=== PATIENT | female | born 1935 | race Hispanic/Latino ===

== ENCOUNTER 2021-08-24 16:56 | Inpatient (IN) | payer MEDICARE ==
--- NOTE | 2021-08-25 09:48 | History and Physical Report ---
GP History & Physical - History of Present Illness Date of admission: 08/25/21 Date of Examination: 08/25/21 Reason for Admission: Danger to self Chief Complaint: Worsening dementia/ hallucinations History of Present Illness: The patient is a 85 year old female with history of dementia who was admitted on 1012 from [facility] for worsening dementia and hallucinations. The patient was seen eating breakfast but confused and unable to participate in assessment. Per Note" The patient is having hallucinations, perseverating on a young male in her yard who talks ugly to her. 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 Patient enrolled in individual and group therapeutic sessions and encouraged to attend. Patient provided with a safe and structured environment. Patient's physical health needs will be addressed by the Hospitalist. Hospitalist Consulted Labs including CBC, CMP, Lipid profile and Hemoglobin A1C levels ordered for baseline reference Social Assessment will be completed and the Reconditioning Associate will work with patient and family to ensure a suitable and safe disposition Medication adjustment will be made as clinically indicated Continue home medications Usual Wellness Spiritism/Preservation: - Start Trazodone 50 mg po QHS & 50 mg po QHS PRN between 10 PM & 2 AM for insomnia - Start Melatonin 5 mg po QHS to promote circadian rhythm The patient agreed on the treatment plan, understood the risk, benefit, alternative treatment, potential consequence of no treatment, and gave informed consent. Estimated days: 7 Post hospital care: primary care provider, psychiatric provider Case staffed with Dr. Dykes Legal Status: Voluntary Reaction to Hospitalization: Accepting Medications and Allergies Allergies Allergy/AdvReac Type Severity Reaction Status Date / Time Sulfa (Sulfonamide Allergy Unknown Unverified 08/24/21 18:24 Antibiotics) Home Medications Medication Instructions Recorded Confirmed Last Taken Type AtorvaSTATin [Lipitor] 10 mg PO QHS 08/25/21 08/25/21 Unknown History Escitalopram Oxalate [Lexapro] 5 mg PO QDAY 08/25/21 08/25/21 Unknown History LORazepam [Lorazepam] 2 mg PO HS 08/25/21 08/25/21 Unknown History Melatonin [Melatonin 5MG TAB] 5 mg PO HS 08/25/21 08/25/21 Unknown History Rivaroxaban [Xarelto] 20 mg PO QDAY 08/25/21 08/25/21 Unknown History lisinopriL [Lisinopril] 10 mg PO BID 08/25/21 08/25/21 Unknown History Physician Certification - Certification Statement Physician Certification Statement: This is an acknowledgement statement that Sherrie Luna is a 86 year old F who requires inpatient psychiatric admission for treatment which could reasonably be expected to improve the patient's condition for Estimated period of time patient will need to remain in the hospital: [ ] Plan for post-hospital care: [ ]
[2021-08-25] MEDS ORDERED: NON-FORMULARY EACH (Rivaroxaban 20 MG Tablet) PO SCH (10:00)
[2021-08-25] MEDS ORDERED: NON-FORMULARY EACH (Escitalopram Oxalate [Lexapro] 5 MG Tablet) PO SCH (10:00)
[2021-08-25] MEDS ORDERED: [UNRECOGNIZED DRUG - OTHER] PO SCH (11:00)
[2021-08-25] MEDS: RIVAROXABAN 20 MG TAB PO SCH (11:09)
[2021-08-25] MEDS: ESCITALOPRAM 10 MG TAB PO SCH (11:09)
[2021-08-25] MEDS: LISINOPRIL 10 MG TAB PO SCH ×2 (11:09→21:17)
[2021-08-25] MEDS: MELATONIN 5 MG TAB PO SCH (21:15)
--- NOTE | 2021-08-26 08:16 | Progress Note ---
Subjective Date of service: 08/26/21 Subjective Comment: 08/26/21: The patient was seen in the activity room, she is calm and oriented to self. She continues to be confused. Per nurse the patient had a quiet night. Collateral from patient's sister Sin Ansari: Ms. Vogt states that the patient started having visual hallucinations about 2 months now, that she was complain of people crawling and walking around her yard and on top of her house and that she could not get them to leave. She was unable to state when or if she was diagnosed with Dementia. 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 Patient enrolled in individual and group therapeutic sessions and encouraged to attend. Patient provided with a safe and structured environment. Patient's physical health needs will be addressed by the Hospitalist. Hospitalist Consulted Labs including CBC, CMP, Lipid profile and Hemoglobin A1C levels ordered for baseline reference Social Assessment will be completed and the Cinema Or Theatre Manager will work with patient and family to ensure a suitable and safe disposition Medication adjustment will be made as clinically indicated Continue home medications Start Risperidone 0.25mg po BID Usual Wellness Yazidism/Preservation: - Start Trazodone 50 mg po QHS & 50 mg po QHS PRN between 10 PM & 2 AM for insomnia - Start Melatonin 5 mg po QHS to promote circadian rhythm The patient agreed on the treatment plan, understood the risk, benefit, alternative treatment, potential consequence of no treatment, and gave informed consent. Estimated days: 6 Post hospital care: primary care provider, psychiatric provider Case staffed with Dr. Dykes Legal Status: Voluntary Reaction to Hospitalization: Accepting Medications and Allergies Medications and Allergies Allergies Allergy/AdvReac Type Severity Reaction Status Date / Time Sulfa (Sulfonamide Allergy Unknown Unverified 08/24/21 18:24 Antibiotics) Home Medications Medication Instructions Recorded Confirmed Last Taken Type AtorvaSTATin [Lipitor] 10 mg PO QHS 08/25/21 08/25/21 Unknown History Escitalopram Oxalate [Lexapro] 5 mg PO QDAY 08/25/21 08/25/21 Unknown History LORazepam [Lorazepam] 2 mg PO HS 08/25/21 08/25/21 Unknown History Melatonin [Melatonin 5MG TAB] 5 mg PO HS 08/25/21 08/25/21 Unknown History Rivaroxaban [Xarelto] 20 mg PO QDAY 08/25/21 08/25/21 Unknown History lisinopriL [Lisinopril] 10 mg PO BID 08/25/21 08/25/21 Unknown History Active Meds: Active Medications Atorvastatin Calcium (Atorvastatin 10 Mg Tab) 10 mg PO QHS [facility] Last Admin: 08/25/21 21:13 Dose: 10 mg Documented by: Escitalopram Oxalate (Escitalopram 10 Mg Tab) 5 mg PO DAILY [facility] Last Admin: 08/25/21 11:09 Dose: 5 mg Documented by: Lisinopril (Lisinopril 10 Mg Tab) 10 mg PO BID [facility] Last Admin: 08/25/21 21:17 Dose: Not Given Documented by: Melatonin (Melatonin 5 Mg Tab) 5 mg PO HS [facility] Last Admin: 08/25/21 21:15 Dose: 5 mg Documented by: Rivaroxaban (Rivaroxaban 20 Mg Tab) 20 mg PO DAILY [facility] Last Admin: 08/25/21 11:09 Dose: 20 mg Documented by: Results - Results Labs/Vitals: Laboratory Last Values POC Glucose 159 mg/dL (70-105) H 08/25/21 18:36 Last Vital Signs Temp 97.9 F 08/25/21 19:41 Pulse 72 08/25/21 21:17 Resp 16 08/25/21 19:41 BP 99/62 08/25/21 21:17 Pulse Ox 97 08/25/21 19:41
[2021-08-26] MEDS: risperiDONE 0.25 MG TAB PO SCH ×2 (09:16→21:28)
[2021-08-26] MEDS: RIVAROXABAN 20 MG TAB PO SCH (09:16)
[2021-08-26] MEDS: ESCITALOPRAM 10 MG TAB PO SCH (09:16)
[2021-08-26] MEDS: LISINOPRIL 10 MG TAB PO SCH ×2 (09:17→21:29)
[2021-08-26] MEDS ORDERED: [UNRECOGNIZED DRUG - OTHER] PO SCH (10:00)
[2021-08-26] MEDS: MELATONIN 5 MG TAB PO SCH (21:28)
--- NOTE | 2021-08-27 07:18 | Progress Note ---
Subjective Date of service: 08/27/21 Subjective Comment: 08/26/21: The patient was seen in the activity room, she is calm and oriented to self. She continues to be confused. Per nurse the patient had a quiet night. Collateral from patient's sister Sin Ansari: Ms. Vogt states that the aimee jean started having visual hallucinations about 2 months now, that she was complain of people crawling and walking around her yard and on top of her house and that she could not get them to leave. She was unable to state when or if she was diagnosed with Dementia. 08/27/21: Patient was seen this morning, she alert and oriented to self but continues to be confused. She states she is doing well. She denies suicidal/homicidal ideation. 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 Patient enrolled in individual and group therapeutic sessions and encouraged to attend. Patient provided with a safe and structured environment. Patient's physical health needs will be addressed by the Hospitalist. Hospitalist Consulted Labs including CBC, CMP, Lipid profile and Hemoglobin A1C levels ordered for baseline reference Social Assessment will be completed and the Brewery Representative will work with patient and family to ensure a suitable and safe disposition Medication adjustment will be made as clinically indicated Continue home medications Continue Risperidone 0.25mg po BID Usual Wellness Judaism/Preservation: - Start Trazodone 50 mg po QHS & 50 mg po QHS PRN between 10 PM & 2 AM for insomnia - Start Melatonin 5 mg po QHS to promote circadian rhythm The patient agreed on the treatment plan, understood the risk, benefit, alternative treatment, potential consequence of no treatment, and gave informed consent. Estimated days: 5 Post hospital care: primary care provider, psychiatric provider Case staffed with Dr. Dykes Legal Status: Voluntary Reaction to Hospitalization: Accepting Medications and Allergies Medications and Allergies Allergies Allergy/AdvReac Type Severity Reaction Status Date / Time Sulfa (Sulfonamide Allergy Unknown Unverified 08/24/21 18:24 Antibiotics) Home Medications Medication Instructions Recorded Confirmed Last Taken Type AtorvaSTATin [Lipitor] 10 mg PO QHS 08/25/21 08/25/21 Unknown History Escitalopram Oxalate [Lexapro] 5 mg PO QDAY 08/25/21 08/25/21 Unknown History LORazepam [Lorazepam] 2 mg PO HS 08/25/21 08/25/21 Unknown History Melatonin [Melatonin 5MG TAB] 5 mg PO HS 08/25/21 08/25/21 Unknown History Rivaroxaban [Xarelto] 20 mg PO QDAY 08/25/21 08/25/21 Unknown History lisinopriL [Lisinopril] 10 mg PO BID 08/25/21 08/25/21 Unknown History Active Meds: Active Medications Atorvastatin Calcium (Atorvastatin 10 Mg Tab) 10 mg PO QHS [facility] Last Admin: 08/26/21 21:28 Dose: 10 mg Documented by: Escitalopram Oxalate (Escitalopram 10 Mg Tab) 5 mg PO DAILY [facility] Last Admin: 08/26/21 09:16 Dose: 5 mg Documented by: Lisinopril (Lisinopril 10 Mg Tab) 10 mg PO BID [facility] Last Admin: 08/26/21 21:29 Dose: Not Given Documented by: Melatonin (Melatonin 5 Mg Tab) 5 mg PO [facility] Last Admin: 08/26/21 21:28 Dose: 5 mg Documented by: Risperidone (Risperidone 0.25 Mg Tab) 0.25 mg PO BID [facility] Last Admin: 08/26/21 21:28 Dose: 0.25 mg Documented by: Rivaroxaban (Rivaroxaban 20 Mg Tab) 20 mg PO DAILY [facility] Last Admin: 08/26/21 09:16 Dose: 20 mg Documented by: Results - Results Labs/Vitals: Laboratory Last Values POC Glucose 159 mg/dL (70-105) H 08/25/21 18:36 Last Vital Signs Temp 97.5 F L 08/26/21 20:00 Pulse 73 08/26/21 19:26 Resp 20 08/26/21 20:00 BP 97/77 08/26/21 19:26 Pulse Ox 96 08/26/21 19:26
--- NOTE | 2021-08-27 09:04 | Consultation ---
History of Present Illness - Reason for Consult Consult date: 08/27/21 med management - History of Present Illness The patient is a 85 year old female with history of dementia who was admitted on [address] [facility] for worsening dementia and hallucinations. Patient admitted for inpatient psychiatric evaluation, medication adjustment and close monitoring. Consultation for medical management. Patient denies any pain or complaints. Past History Past Medical History: other (Unable to obtain due to mental state) Past Surgical History: Other (Unable to obtain due to mental) Social history: other (Unable to obtain due to mental status) Family history: other (Unable to obtain due to mental status) Medications and Allergies Allergies Allergy/AdvReac Type Severity Reaction Status Date / Time Sulfa (Sulfonamide Allergy Unknown Unverified 08/24/21 18:24 Antibiotics) Home Medications Medication Instructions Recorded Confirmed Last Taken Type AtorvaSTATin [Lipitor] 10 mg PO QHS 08/25/21 08/25/21 Unknown History Escitalopram Oxalate [Lexapro] 5 mg PO QDAY 08/25/21 08/25/21 Unknown History LORazepam [Lorazepam] 2 mg PO HS 08/25/21 08/25/21 Unknown History Melatonin [Melatonin 5MG TAB] 5 mg PO HS 08/25/21 08/25/21 Unknown History Rivaroxaban [Xarelto] 20 mg PO QDAY 08/25/21 08/25/21 Unknown History lisinopriL [Lisinopril] 10 mg PO BID 08/25/21 08/25/21 Unknown History Active Meds: Active Medications Atorvastatin Calcium (Atorvastatin 10 Mg Tab) 10 mg PO QHS [facility] Last Admin: 08/26/21 21:28 Dose: 10 mg Documented by: Escitalopram Oxalate (Escitalopram 10 Mg Tab) 5 mg PO DAILY [facility] Last Admin: 08/26/21 09:16 Dose: 5 mg Documented by: Lisinopril (Lisinopril 10 Mg Tab) 10 mg PO BID [facility] Last Admin: 08/26/21 21:29 Dose: Not Given Documented by: Melatonin (Melatonin 5 Mg Tab) 5 mg PO HS [facility] Last Admin: 08/26/21 21:28 Dose: 5 mg Documented by: Risperidone (Risperidone 0.25 Mg Tab) 0.25 mg PO BID [facility] Last Admin: 08/26/21 21:28 Dose: 0.25 mg Documented by: Rivaroxaban (Rivaroxaban 20 Mg Tab) 20 mg PO DAILY [facility] Last Admin: 08/26/21 09:16 Dose: 20 mg Documented by: Review of Systems ROS unobtainable: due to mental status Exam - Constitutional Vitals: Temp Pulse Resp BP Pulse Ox 97.5 F L 73 20 97/77 96 08/26/21 20:00 08/26/21 19:26 08/26/21 20:00 08/26/21 19:26 08/26/21 19:26 General appearance: Present: no acute distress, well-nourished - EENT Eyes: Present: PERRL ENT: hearing intact, clear oral mucosa - Neck Neck: Present: supple, normal ROM - Respiratory Respiratory effort: normal Respiratory: bilateral: CTA - Cardiovascular Heart Sounds: Present: S1 & S2. Absent: rub, click - Extremities Extremities: pulses symmetrical, No edema Peripheral Pulses: within normal limits - Abdominal General gastrointestinal: Present: soft, non-tender, non-distended, normal bowel sounds Female genitourinary: Present: normal - Integumentary Integumentary: Present: clear, warm, dry - Musculoskeletal Musculoskeletal: gait normal, strength equal bilaterally - Psychiatric Psychiatric: appropriate mood/affect, intact judgment & insight - Neurologic Neurologic: CNII-XII intact, moves all extremities Assessment and Plan Neurocognitive disorder with behavioral disturbance. Hyperlipidemia Anticoagulation. 08/27/2021 patient is currently on anticoagulation but no old records available to determine reason. We will check CBC, BMP, hemoglobin A1c, ammonia level, B12, folate, urinalysis and TSH to rule out potential medical causes for encephalopathy. Obtain old records. Continue current home medications for now
[2021-08-27] MEDS: ESCITALOPRAM 10 MG TAB PO SCH (12:22)
[2021-08-27] MEDS: risperiDONE 0.25 MG TAB PO SCH ×2 (12:22→21:01)
[2021-08-27] MEDS: LISINOPRIL 10 MG TAB PO SCH ×2 (12:23→21:02)
[2021-08-27] MEDS: RIVAROXABAN 20 MG TAB PO SCH (12:23)
[2021-08-27] MEDS: MELATONIN 5 MG TAB PO SCH (21:01)
[2021-08-28] MEDS: ESCITALOPRAM 10 MG TAB PO SCH (12:30)
[2021-08-28] MEDS: risperiDONE 0.25 MG TAB PO SCH ×2 (12:32→21:28)
[2021-08-28] MEDS: LISINOPRIL 10 MG TAB PO SCH ×2 (12:32→21:29)
[2021-08-28] MEDS: RIVAROXABAN 20 MG TAB PO SCH (12:32)
--- NOTE | 2021-08-28 14:32 | Progress Note ---
Subjective Date of service: 08/28/21 Subjective Comment: 08/26/21: The patient was seen in the activity room, she is calm and oriented to self. She continues to be confused. Per nurse the patient had a quiet night. Collateral from patient's sister Sin Ansari: Ms. Vogt states that the aimee jean started having visual hallucinations about 2 months now, that she was complain of people crawling and walking around her yard and on top of her house and that she could not get them to leave. She was unable to state when or if she was diagnosed with Dementia. 08/27/21: Patient was seen this morning, she alert and oriented to self but continues to be confused. She states she is doing well. She denies suicidal/homicidal ideation. 08/28/21: The patient was seen this morning,she is calm but still confused. She states she is doing well. She denies suicidal/homicidal ideation. 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 Patient enrolled in individual and group therapeutic sessions and encouraged to attend. Patient provided with a safe and structured environment. Patient's physical health needs will be addressed by the Hospitalist. Hospitalist Consulted Labs including CBC, CMP, Lipid profile and Hemoglobin A1C levels ordered for baseline reference Social Assessment will be completed and the Log Check Scaler will work with patient and family to ensure a suitable and safe disposition Medication adjustment will be made as clinically indicated Continue home medications Continue Risperidone 0.25mg po BID Usual Wellness Yazidism/Preservation: - Start Trazodone 50 mg po QHS & 50 mg po QHS PRN between 10 PM & 2 AM for insomnia - Start Melatonin 5 mg po QHS to promote circadian rhythm The patient agreed on the treatment plan, understood the risk, benefit, alternative treatment, potential consequence of no treatment, and gave informed consent. Estimated days: 5 Post hospital care: primary care provider, psychiatric provider Case staffed with Dr. Dykes Medications and Allergies Allergies Allergy/AdvReac Type Severity Reaction Status Date / Time Sulfa (Sulfonamide Allergy Unknown Unknown Verified 08/27/21 12:21 Antibiotics) Home Medications Medication Instructions Recorded Confirmed Last Taken Type AtorvaSTATin [Lipitor] 10 mg PO QHS 08/25/21 08/25/21 Unknown History Escitalopram Oxalate [Lexapro] 5 mg PO QDAY 08/25/21 08/25/21 Unknown History LORazepam [Lorazepam] 2 mg PO HS 08/25/21 08/25/21 Unknown History Melatonin [Melatonin 5MG TAB] 5 mg PO HS 08/25/21 08/25/21 Unknown History Rivaroxaban [Xarelto] 20 mg PO QDAY 08/25/21 08/25/21 Unknown History lisinopriL [Lisinopril] 10 mg PO BID 08/25/21 08/25/21 Unknown History Active Meds: Active Medications Atorvastatin Calcium (Atorvastatin 10 Mg Tab) 10 mg PO QHS [facility] Last Admin: 08/27/21 21:01 Dose: 10 mg Documented by: Escitalopram Oxalate (Escitalopram 10 Mg Tab) 5 mg PO DAILY [facility] Last Admin: 08/27/21 12:22 Dose: 5 mg Documented by: Lisinopril (Lisinopril 10 Mg Tab) 10 mg PO BID [facility] Last Admin: 08/27/21 21:02 Dose: Not Given Documented by: Melatonin (Melatonin 5 Mg Tab) 5 mg PO [facility] Last Admin: 08/27/21 21:01 Dose: 5 mg Documented by: Risperidone (Risperidone 0.25 Mg Tab) 0.25 mg PO BID [facility] Last Admin: 08/27/21 21:01 Dose: 0.25 mg Documented by: Rivaroxaban (Rivaroxaban 20 Mg Tab) 20 mg PO DAILY [facility] Last Admin: 08/27/21 12:23 Dose: 20 mg Documented by: Results - Results Labs/Vitals: Laboratory Last Values POC Glucose 159 mg/dL (70-105) H 08/25/21 18:36 Last Vital Signs Temp 97.8 F 08/27/21 22:00 Pulse 80 08/27/21 22:00 Resp 18 08/27/21 22:00 BP 116/70 08/27/21 22:00 Pulse Ox 97 08/27/21 22:00
[2021-08-28] MEDS: MELATONIN 5 MG TAB PO SCH (21:28)
--- NOTE | 2021-08-29 07:54 | Progress Note ---
Subjective Date of service: 08/29/21 Subjective Comment: 08/26/21: The patient was seen in the activity room, she is calm and oriented to self. She continues to be confused. Per nurse the patient had a quiet night. Collateral from patient's sister Sin Ansari: Ms. Vogt states that the p miranda started having visual hallucinations about 2 months now, that she was complain of people crawling and walking around her yard and on top of her house and that she could not get them to leave. She was unable to state when or if she was diagnosed with Dementia. 08/27/21: Patient was seen this morning, she alert and oriented to self but continues to be confused. She states she is doing well. She denies suicidal/homicidal ideation. 08/28/21: The patient was seen this morning,she is calm but still confused. She states she is doing well. She denies suicidal/homicidal ideation. 08/29/21: The patient was seen in the bed this morning, she continues to be confused, when asked about he sleep she states she stated no good " my sister came up here last night. Per nurse,"Last evening the patient spent in the activity room with peers. She is pleasantly confused. She denies si/hi/ah/vh. Her appetite is fair and she is medication compliant. Overnight the patient had a difficult time sleeping. After going to bed she started yelling out. She talked about being afraid in her room. She believes there is a fire outside that is "coming inside to burn us all up". This travel writer reoriented her to being safe in the hospital. She pointed to the lights and stated she sees smoke. She goes back and forth between knowing she is in a hospital and thinking she is at home. She repeats the delusion that a man is sitting on her roof and yelling mean things to her because she made him mad about something. She keeps ruminating on this delusion. After reorienting again the patient becomes calmer but does not go to sleep. The tech sits at her door to keep her from getting out of bed and falling. Through the night she points to different areas of her room and tells the tech that someone is standing there. Tech reorients and she becomes quiet but does not sleep at all." REVIEW OF SYSTEMS Could not obtain MENTAL STATUS EXAMINATION could not obtain Assessment and Plan (1) Neurocognitive disorder with behavioral disturbance -F01.50 Current Visit: Yes Status: Acute Treatment Plan Patient admitted for inpatient psychiatric evaluation, medication adjustment and close monitoring The patient's behavior, mood, sleep and appetite will be closely monitored. Patient enrolled in individual and group therapeutic sessions and encouraged to attend. Patient provided with a safe and structured environment. Patient's physical health needs will be addressed by the Hospitalist. Hospitalist Consulted Labs including CBC, CMP, Lipid profile and Hemoglobin A1C levels ordered for baseline reference Social Assessment will be completed and the Health Information Coder will work with patient and family to ensure a suitable and safe disposition Medication adjustment will be made as clinically indicated Continue home medications Start Risperidone 0.5mg po BID Start Mirtzazapine 7.5mg po QHS Usual Wellness Jainism/Preservation: - Start Trazodone 50 mg po QHS & 50 mg po QHS PRN between 10 PM & 2 AM for insomnia - Start Melatonin 5 mg po QHS to promote circadian rhythm The patient agreed on the treatment plan, understood the risk, benefit, alternative treatment, potential consequence of no treatment, and gave informed consent. Estimated days: 5 Post hospital care: primary care provider, psychiatric provider Case staffed with Dr. Dykes Medications and Allergies Medications and Allergies Allergies Allergy/AdvReac Type Severity Reaction Status Date / Time Sulfa (Sulfonamide Allergy Unknown Unknown Verified 08/27/21 12:21 Antibiotics) Home Medications Medication Instructions Recorded Confirmed Last Taken Type AtorvaSTATin [Lipitor] 10 mg PO QHS 08/25/21 08/25/21 Unknown History Escitalopram Oxalate [Lexapro] 5 mg PO QDAY 08/25/21 08/25/21 Unknown History LORazepam [Lorazepam] 2 mg PO HS 08/25/21 08/25/21 Unknown History Melatonin [Melatonin 5MG TAB] 5 mg PO HS 08/25/21 08/25/21 Unknown History Rivaroxaban [Xarelto] 20 mg PO QDAY 08/25/21 08/25/21 Unknown History lisinopriL [Lisinopril] 10 mg PO BID 08/25/21 08/25/21 Unknown History Active Meds: Active Medications Atorvastatin Calcium (Atorvastatin 10 Mg Tab) 10 mg PO QHS [facility] Last Admin: 08/28/21 21:28 Dose: 10 mg Documented by: Escitalopram Oxalate (Escitalopram 10 Mg Tab) 5 mg PO DAILY [facility] Last Admin: 08/28/21 12:30 Dose: 5 mg Documented by: Lisinopril (Lisinopril 10 Mg Tab) 10 mg PO BID [facility] Last Admin: 08/28/21 21:29 Dose: Not Given Documented by: Melatonin (Melatonin 5 Mg Tab) 5 mg PO HS [facility] Last Admin: 08/28/21 21:28 Dose: 5 mg Documented by: Risperidone (Risperidone 0.25 Mg Tab) 0.25 mg PO BID [facility] Last Admin: 08/28/21 21:28 Dose: 0.25 mg Documented by: Rivaroxaban (Rivaroxaban 20 Mg Tab) 20 mg PO DAILY [facility] Last Admin: 08/28/21 12:32 Dose: 20 mg Documented by: Results - Results Labs/Vitals: Laboratory Last Values POC Glucose 159 mg/dL (70-105) H 08/25/21 18:36 Last Vital Signs Temp 97.9 F 08/28/21 19:40 Pulse 70 08/28/21 21:29 Resp 12 08/28/21 19:40 BP 95/46 08/28/21 21:29 Pulse Ox 97 08/28/21 19:40
[2021-08-29] MEDS: ESCITALOPRAM 10 MG TAB PO SCH (11:35)
[2021-08-29] MEDS: risperiDONE 0.25 MG TAB PO SCH ×3 (11:35→21:09)
[2021-08-29] MEDS: RIVAROXABAN 20 MG TAB PO SCH (11:36)
[2021-08-29] MEDS: LISINOPRIL 10 MG TAB PO SCH ×2 (11:36→21:12)
[2021-08-29] MEDS: MELATONIN 5 MG TAB PO SCH (21:09)
[2021-08-29] MEDS: MIRTAZAPINE 15 MG TAB PO SCH (21:10)
--- NOTE | 2021-08-30 09:14 | Progress Note ---
Subjective Date of service: 08/30/21 Subjective Comment: 08/26/21: The patient was seen in the activity room, she is calm and oriented to self. She continues to be confused. Per nurse the patient had a quiet night. Collateral from patient's sister Sin Ansari: Ms. Vogt states that the p miranda started having visual hallucinations about 2 months now, that she was complain of people crawling and walking around her yard and on top of her house and that she could not get them to leave. She was unable to state when or if she was diagnosed with Dementia. 08/27/21: Patient was seen this morning, she alert and oriented to self but continues to be confused. She states she is doing well. She denies suicidal/homicidal ideation. 08/28/21: The patient was seen this morning,she is calm but still confused. She states she is doing well. She denies suicidal/homicidal ideation. 08/29/21: The patient was seen in the bed this morning, she continues to be confused, when asked about he sleep she states she stated no good " my sister came up here last night. Per nurse,"Last evening the patient spent in the activity room with peers. She is pleasantly confused. She denies si/hi/ah/vh. Her appetite is fair and she is medication compliant. Overnight the patient had a difficult time sleeping. After going to bed she started yelling out. She talked about being afraid in her room. She believes there is a fire outside that is "coming inside to burn us all up". This life insurance underwriter reoriented her to being safe in the hospital. She pointed to the lights and stated she sees smoke. She goes back and forth between knowing she is in a hospital and thinking she is at home. She repeats the delusion that a man is sitting on her roof and yelling mean things to her because she made him mad about something. She keeps ruminating on this delusion. After reorienting again the patient becomes calmer but does not go to sleep. The tech sits at her door to keep her from getting out of bed and falling. Through the night she points to different areas of her room and tells the tech that someone is standing there. Tech reorients and she becomes quiet but does not sleep at all." 11/04/21: The patient was seen sleeping. Per nurse, "Pt is AOX1. Medication compliant. Denies any SI/HI and no reported pain. Slept through the night and no other needs expressed at this time." REVIEW OF SYSTEMS Could not obtain MENTAL STATUS EXAMINATION could not obtain Assessment and Plan (1) Neurocognitive disorder with behavioral disturbance -F01.50 Current Visit: Yes Status: Acute Treatment Plan Patient admitted for inpatient psychiatric evaluation, medication adjustment and close monitoring The patient's behavior, mood, sleep and appetite will be closely monitored. Patient enrolled in individual and group therapeutic sessions and encouraged to attend. Patient provided with a safe and structured environment. Patient's physical health needs will be addressed by the Hospitalist. Hospitalist Consulted Labs including CBC, CMP, Lipid profile and Hemoglobin A1C levels ordered for baseline reference Social Assessment will be completed and the Cheese Supervisor will work with patient and family to ensure a suitable and safe disposition Medication adjustment will be made as clinically indicated Continue home medications Start Risperidone 0.5mg po daily Continue Mirtzapine 7.5mg po QHS Usual Wellness Buddhism/Preservation: - Start Trazodone 50 mg po QHS & 50 mg po QHS PRN between 10 PM & 2 AM for insomnia - Start Melatonin 5 mg po QHS to promote circadian rhythm The patient agreed on the treatment plan, understood the risk, benefit, alternative treatment, potential consequence of no treatment, and gave informed consent. Estimated days: 5 Post hospital care: primary care provider, psychiatric provider Case staffed with Dr. Dykes Medications and Allergies Medications and Allergies Allergies Allergy/AdvReac Type Severity Reaction Status Date / Time Sulfa (Sulfonamide Allergy Unknown Unknown Verified 08/27/21 12:21 Antibiotics) Home Medications Medication Instructions Recorded Confirmed Last Taken Type AtorvaSTATin [Lipitor] 10 mg PO QHS 08/25/21 08/25/21 Unknown History Escitalopram Oxalate [Lexapro] 5 mg PO QDAY 08/25/21 08/25/21 Unknown History LORazepam [Lorazepam] 2 mg PO HS 08/25/21 08/25/21 Unknown History Melatonin [Melatonin 5MG TAB] 5 mg PO HS 08/25/21 08/25/21 Unknown History Rivaroxaban [Xarelto] 20 mg PO QDAY 08/25/21 08/25/21 Unknown History lisinopriL [Lisinopril] 10 mg PO BID 08/25/21 08/25/21 Unknown History Active Meds: Active Medications Atorvastatin Calcium (Atorvastatin 10 Mg Tab) 10 mg PO QHS [facility] Last Admin: 08/29/21 21:09 Dose: 10 mg Documented by: Escitalopram Oxalate (Escitalopram 10 Mg Tab) 5 mg PO DAILY [facility] Last Admin: 08/29/21 11:35 Dose: 5 mg Documented by: Lisinopril (Lisinopril 10 Mg Tab) 10 mg PO BID [facility] Last Admin: 08/29/21 21:12 Dose: Not Given Documented by: Melatonin (Melatonin 5 Mg Tab) 5 mg PO [facility] Last Admin: 08/29/21 21:09 Dose: 5 mg Documented by: Mirtazapine (Mirtazapine 15 Mg Tab) 15 mg PO QHS [facility] Last Admin: 08/29/21 21:10 Dose: 15 mg Documented by: Risperidone (Risperidone 0.25 Mg Tab) 0.5 mg PO BID [facility] Last Admin: 08/29/21 21:09 Dose: 0.5 mg Documented by: Rivaroxaban (Rivaroxaban 20 Mg Tab) 20 mg PO DAILY [facility] Last Admin: 08/29/21 11:36 Dose: 20 mg Documented by: Results - Results Labs/Vitals: Laboratory Last Values POC Glucose 159 mg/dL (70-105) H 08/25/21 18:36 Last Vital Signs Temp 97.1 F L 08/29/21 19:35 Pulse 65 08/29/21 21:12 Resp 18 08/29/21 19:35 BP 91/48 08/29/21 21:12 Pulse Ox 97 08/29/21 19:35
[2021-08-30] MEDS: risperiDONE 0.25 MG TAB PO SCH (09:23)
[2021-08-30] MEDS: ESCITALOPRAM 10 MG TAB PO SCH (09:23)
[2021-08-30] MEDS: RIVAROXABAN 20 MG TAB PO SCH (09:23)
[2021-08-30] MEDS: LISINOPRIL 10 MG TAB PO SCH ×2 (09:24→22:16)
[2021-08-30] MEDS: MIRTAZAPINE 15 MG TAB PO SCH (22:06)
[2021-08-30] MEDS: MELATONIN 5 MG TAB PO SCH (22:08)
[2021-08-31 06:00] LABS: Hemoglobin 11.4 gm/dl (10.1-14.3); Mean Corpuscular HGB Conc 34 % (30-34); Mean Corpuscular Volume 91 fl (79-97); Platelet Count 266 K/mm3 (140-440); Red Blood Count 3.63 M/mm3 (3.65-5.03); Red Cell Distribution Width 13.9 % (13.2-15.2)
[2021-08-31 06:12] LABS: Calcium 8.7 mg/dL (8.4-10.2)
[2021-08-31] MEDS ORDERED: risperiDONE 0.25 MG TAB PO SCH (10:00)
--- NOTE | 2021-08-31 10:04 | Progress Note ---
Subjective Date of service: 08/31/21 Principal diagnosis: Neurogenic Disorder with Bipolar Disturbance Subjective Comment: The patient was seen today. She says she's not doing too good because her back is hurting. The patient says she did not sleep well. She is tearful. When asked about thoughts of not living she says "no I don't want to live." She denies hallucinations of any kind. Nursing staff states the patient was up all night hallucination; talking and seeing people who weren't here. 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 Patient enrolled in individual and group therapeutic sessions and encouraged to attend. Patient provided with a safe and structured environment. Patient's physical health needs will be addressed by the Hospitalist. Hospitali st Consulted Labs including CBC, CMP, Lipid profile and Hemoglobin A1C levels ordered for baseline reference Social Assessment will be completed and the Pals Specialist will work with patient and family to ensure a suitable and safe disposition Medication adjustment will be made as clinically indicated Increase Risperidone 1mg po BID Increase Lexapro 10mg po daily Usual Wellness Zoroastrianism/Preservation: - Start Trazodone 50 mg po QHS & 50 mg po QHS PRN between 10 PM & 2 AM for insomnia - Start Melatonin 5 mg po QHS to promote circadian rhythm The patient agreed on the treatment plan, understood the risk, benefit, alternative treatment, potential consequence of no treatment, and gave informed consent. Estimated days: 5 Post hospital care: primary care provider, psychiatric provider Case staffed with Dr. Dykes Medications and Allergies Allergies Allergy/AdvReac Type Severity Reaction Status Date / Time Sulfa (Sulfonamide Allergy Unknown Unknown Verified 08/27/21 12:21 Antibiotics) Home Medications Medication Instructions Recorded Confirmed Last Taken Type AtorvaSTATin [Lipitor] 10 mg PO QHS 08/25/21 08/25/21 Unknown History Escitalopram Oxalate [Lexapro] 5 mg PO QDAY 08/25/21 08/25/21 Unknown History LORazepam [Lorazepam] 2 mg PO HS 08/25/21 08/25/21 Unknown History Melatonin [Melatonin 5MG TAB] 5 mg PO HS 08/25/21 08/25/21 Unknown History Rivaroxaban [Xarelto] 20 mg PO QDAY 08/25/21 08/25/21 Unknown History lisinopriL [Lisinopril] 10 mg PO BID 08/25/21 08/25/21 Unknown History Active Meds: Active Medications Atorvastatin Calcium (Atorvastatin 10 Mg Tab) 10 mg PO QHS [facility] Last Admin: 08/30/21 22:06 Dose: 10 mg Documented by: Escitalopram Oxalate (Escitalopram 10 Mg Tab) 5 mg PO DAILY [facility] Last Admin: 08/30/21 09:23 Dose: 5 mg Documented by: Lisinopril (Lisinopril 10 Mg Tab) 10 mg PO BID [facility] Last Admin: 08/30/21 22:16 Dose: Not Given Documented by: Melatonin (Melatonin 5 Mg Tab) 5 mg PO HS [facility] Last Admin: 08/30/21 22:08 Dose: 5 mg Documented by: Mirtazapine (Mirtazapine 15 Mg Tab) 15 mg PO QHS [facility] Last Admin: 08/30/21 22:06 Dose: 15 mg Documented by: Risperidone (Risperidone 0.25 Mg Tab) 0.5 mg PO DAILY [facility] Rivaroxaban (Rivaroxaban 20 Mg Tab) 20 mg PO DAILY [facility] Last Admin: 08/30/21 09:23 Dose: 20 mg Documented by: Results - Results Labs/Vitals: Laboratory Last Values WBC 8.0 K/mm3 (4.5-11.0) 08/31/21 05:35 RBC 3.63 M/mm3 (3.65-5.03) L 08/31/21 05:35 Hgb 11.4 gm/dl (10.1-14.3) 08/31/21 05:35 Hct 33.0 % (30.3-42.9) 08/31/21 05:35 MCV 91 fl (79-97) 08/31/21 05:35 MCH 31 pg (28-32) 08/31/21 05:35 MCHC 34 % (30-34) 08/31/21 05:35 RDW 13.9 % (13.2-15.2) 08/31/21 05:35 Plt Count 266 K/mm3 (140-440) 08/31/21 05:35 Sodium 140 mmol/L (137-145) 08/31/21 05:35 Potassium 4.6 mmol/L (3.6-5.0) 08/31/21 05:35 Chloride 103.9 mmol/L (98-107) 08/31/21 05:35 Carbon Dioxide 24 mmol/L (22-30) 08/31/21 05:35 Anion Gap 17 mmol/L 08/31/21 05:35 BUN 48 mg/dL (7-17) H 08/31/21 05:35 Creatinine 0.9 mg/dL (0.6-1.2) 08/31/21 05:35 Estimated GFR 59 ml/min 08/31/21 05:35 BUN/Creatinine Ratio 53 % 08/31/21 05:35 Glucose 97 mg/dL (65-100) 08/31/21 05:35 POC Glucose 159 mg/dL (70-105) H 08/25/21 18:36 Calcium 8.7 mg/dL (8.4-10.2) 08/31/21 05:35 Last Vital Signs Temp 98.1 F 08/30/21 19:31 Pulse 80 08/30/21 22:16 Resp 16 08/30/21 19:31 BP 97/57 08/30/21 22:16 Pulse Ox 95 08/30/21 19:31
[2021-08-31] MEDS: RIVAROXABAN 20 MG TAB PO SCH (12:11)
[2021-08-31] MEDS: LISINOPRIL 10 MG TAB PO SCH ×2 (12:11→21:29)
[2021-08-31] MEDS: ESCITALOPRAM 10 MG TAB PO SCH ×2 (12:11→12:20)
[2021-08-31] MEDS: risperiDONE 1 MG TAB PO SCH ×2 (12:14→21:28)
--- NOTE | 2021-08-31 12:50 | Progress Note ---
Hospitalist Physical - Constitutional Vitals: Temp Pulse Resp BP Pulse Ox 97.7 F 59 L 20 102/53 96 08/31/21 10:31 08/31/21 12:11 08/31/21 10:31 08/31/21 12:11 08/31/21 10:31 General appearance: Present: no acute distress, well-nourished Results - Labs CBC & Chem 7: 08/31/21 05:35 08/31/21 05:35 Labs: Laboratory Last Values WBC 8.0 K/mm3 (4.5-11.0) 08/31/21 05:35 RBC 3.63 M/mm3 (3.65-5.03) L 08/31/21 05:35 Hgb 11.4 gm/dl (10.1-14.3) 08/31/21 05:35 Hct 33.0 % (30.3-42.9) 08/31/21 05:35 MCV 91 fl (79-97) 08/31/21 05:35 MCH 31 pg (28-32) 08/31/21 05:35 MCHC 34 % (30-34) 08/31/21 05:35 RDW 13.9 % (13.2-15.2) 08/31/21 05:35 Plt Count 266 K/mm3 (140-440) 08/31/21 05:35 Sodium 140 mmol/L (137-145) 08/31/21 05:35 Potassium 4.6 mmol/L (3.6-5.0) 08/31/21 05:35 Chloride 103.9 mmol/L (98-107) 08/31/21 05:35 Carbon Dioxide 24 mmol/L (22-30) 08/31/21 05:35 Anion Gap 17 mmol/L 08/31/21 05:35 BUN 48 mg/dL (7-17) H 08/31/21 05:35 Creatinine 0.9 mg/dL (0.6-1.2) 08/31/21 05:35 Estimated GFR 59 ml/min 08/31/21 05:35 BUN/Creatinine Ratio 53 % 08/31/21 05:35 Glucose 97 mg/dL (65-100) 08/31/21 05:35 POC Glucose 159 mg/dL (70-105) H 08/25/21 18:36 Calcium 8.7 mg/dL (8.4-10.2) 08/31/21 05:35 Escobar/IV: Voiding Method Toilet Active Medications - Current Medications Current Medications: Generic Name Dose Route Start Last Admin Trade Name Freq PRN Reason Stop Dose Admin Atorvastatin Calcium 10 mg 08/25/21 22:00 08/30/21 22:06 Atorvastatin 10 Mg Tab PO 10 mg QHS YADI Administration Escitalopram Oxalate 10 mg 08/31/21 11:00 08/31/21 12:11 Escitalopram 10 Mg Tab PO 10 mg QDAY YADI Administration Lisinopril 10 mg 08/25/21 10:00 08/31/21 12:11 Lisinopril 10 Mg Tab PO Not Given BID YADI Melatonin 5 mg 08/25/21 22:00 08/30/21 22:08 Melatonin 5 Mg Tab PO 5 mg HS YADI Administration Mirtazapine 15 mg 08/29/21 22:00 08/30/21 22:06 Mirtazapine 15 Mg Tab PO 15 mg QHS YADI Administration Risperidone 1 mg 08/31/21 11:00 08/31/21 12:14 Risperidone 1 Mg Tab PO 1 mg BID YADI Administration Rivaroxaban 20 mg 08/25/21 10:00 08/31/21 12:11 Rivaroxaban 20 Mg Tab PO 20 mg DAILY YADI Administration Nutrition/Malnutrition Assess - Dietary Evaluation Nutrition/Malnutrition Findings: Nutrition Notes Start: 08/26/21 10:59 Freq: Status: Active Protocol: Document 08/27/21 11:32 NATIVIDAD (Rec: 08/27/21 11:53 NATIVIDAD [id number]) Nutrition Notes Need for Assessment generated from: MD Order Initial or Follow up Reassessment Other Pertinent Diagnosis Neurocognitive disorder with behavioral disturbance Current Diet Regular (since B 08/25); Dietary Supplements (since L 08/27). Labs/Tests 08/25: POC BG 159 Pertinent Medications 08/27: Nutritionally unremarkable. Height 5 ft 6 in Weight 60 kg [place] Body Weight (kg) 59.09 BMI 21.3 Weight Status Underweight Subjective/Other Information RD consult for poor PO, ONS, and prescription for dietary supplements. Percent of energy/protein needs met: Prescribed Regular Diet provides fro energy/protein needs (2289 Kcal/89 g) during LOS. Additionally, Dietary Supplements provide 1050 Kcal and 60 g of protein to compensate for Fair PO intake. Burn Absent Trauma Absent GI Symptoms None Food Allergy No Skin Integrity/Comment Clear , warm, dry. Current % PO Fair (50-74%) Minimum of two criteria No #1 Nutrition Diagnosis Inadequate energy intake Etiology Possibly associated with current condition. As Evidenced by Signs and Symptoms Fair PO intake of meals according to nurse notes, and MD request for dietary supplements. Diagnosis Progress(for reassessment Continues documentation) Is patient on ventilator? No Is Patient Ambulatory and/or Out of Bed Yes REE-([place]-St. Jeor-ambulatory/OOB) [ 1360.775 [id number]] Kcal/Kg value to use for calculation 27 Approximate Energy Requirements Using 1620 kcal/Kg Calculation Used for Recommendations Kcal/kg Additional Notes Protein: (1-1.2g/kg) 60-72g Fluid: 1 ml/kcal Nutrition Intervention Change Diet Order: Continue Regular Diet. Add Supplement/Snack (indicate name/kcal 8 fl oz Ensure Enlive TID /protein ) Provides kCal: 1,050 Provides Protein (gm) 60 Goal #1 Maintain body weight within +/ -3% of current BWt during LOS. Goal #2 Reach and maintain acceptable chemistry lab values during LOS. Follow-Up By: 09/03/21 Additional Comments Continue monitoring food tolerance, %PO intake of meals , hydration, and BM.
[2021-08-31] MEDS: MIRTAZAPINE 15 MG TAB PO SCH (21:28)
[2021-08-31] MEDS: MELATONIN 5 MG TAB PO SCH (21:28)
--- NOTE | 2021-09-01 09:47 | Progress Note ---
Subjective Date of service: 09/01/21 Principal diagnosis: Neurogenic Disorder with Bipolar Disturbance Subjective Comment: The patient was seen today. She is drowsy and drifts back to sleep frequently. She says she slept good and feels better. When asking the patient if she still felt like she didn't want to live she said yes. 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 Patient enrolled in individual and group therapeutic sessions and encouraged to attend. Patient provided with a safe and structured environment. Patient's physical health needs will be addressed by the Hospitalist. Hospitalist Consulted Labs including CBC, CMP, Lipid profile and Hemoglobin A1C levels ordered for baseline reference Social Assessment will be completed and the Sap Hana Architect will work with patient and family to ensure a suitable and safe disposition Medication adjustment will be made as clinically indicated Increase Risperidone 1mg po BID yesterday Increase Lexapro 10mg po daily yesterday No changes made today Usual Wellness Christian/Preservation: - Start Trazodone 50 mg po QHS & 50 mg po QHS PRN between 10 PM & 2 AM for insomnia - Start Melatonin 5 mg po QHS to promote circadian rhythm The patient agreed on the treatment plan, understood the risk, benefit, alternative treatment, potential consequence of no treatment, and gave informed consent. Estimated days: 5 Post hospital care: primary care provider, psychiatric provider Case staffed with Dr. Dykes Medications and Allergies Allergies Allergy/AdvReac Type Severity Reaction Status Date / Time Sulfa (Sulfonamide Allergy Unknown Unknown Verified 08/27/21 12:21 Antibiotics) Home Medications Medication Instructions Recorded Confirmed Last Taken Type AtorvaSTATin [Lipitor] 10 mg PO QHS 08/25/21 08/25/21 Unknown History Escitalopram Oxalate [Lexapro] 5 mg PO QDAY 08/25/21 08/25/21 Unknown History LORazepam [Lorazepam] 2 mg PO HS 08/25/21 08/25/21 Unknown History Melatonin [Melatonin 5MG TAB] 5 mg PO HS 08/25/21 08/25/21 Unknown History Rivaroxaban [Xarelto] 20 mg PO QDAY 08/25/21 08/25/21 Unknown History lisinopriL [Lisinopril] 10 mg PO BID 08/25/21 08/25/21 Unknown History Active Meds: Active Medications Atorvastatin Calcium (Atorvastatin 10 Mg Tab) 10 mg PO QHS [facility] Last Admin: 08/31/21 21:28 Dose: 10 mg Documented by: Escitalopram Oxalate (Escitalopram 10 Mg Tab) 10 mg PO QDAY [facility] Last Admin: 08/31/21 12:11 Dose: 10 mg Documented by: Lisinopril (Lisinopril 10 Mg Tab) 10 mg PO BID [facility] Last Admin: 08/31/21 21:29 Dose: 10 mg Documented by: Melatonin (Melatonin 5 Mg Tab) 5 mg PO HS [facility] Last Admin: 08/31/21 21:28 Dose: 5 mg Documented by: Mirtazapine (Mirtazapine 15 Mg Tab) 15 mg PO QHS [facility] Last Admin: 08/31/21 21:28 Dose: 15 mg Documented by: Risperidone (Risperidone 1 Mg Tab) 1 mg PO BID [facility] Last Admin: 08/31/21 21:28 Dose: 1 mg Documented by: Rivaroxaban (Rivaroxaban 20 Mg Tab) 20 mg PO DAILY [facility] Last Admin: 08/31/21 12:11 Dose: 20 mg Documented by: Results - Results Labs/Vitals: Laboratory Last Values WBC 8.0 K/mm3 (4.5-11.0) 08/31/21 05:35 RBC 3.63 M/mm3 (3.65-5.03) L 08/31/21 05:35 Hgb 11.4 gm/dl (10.1-14.3) 08/31/21 05:35 Hct 33.0 % (30.3-42.9) 08/31/21 05:35 MCV 91 fl (79-97) 08/31/21 05:35 MCH 31 pg (28-32) 08/31/21 05:35 MCHC 34 % (30-34) 08/31/21 05:35 RDW 13.9 % (13.2-15.2) 08/31/21 05:35 Plt Count 266 K/mm3 (140-440) 08/31/21 05:35 Sodium 140 mmol/L (137-145) 08/31/21 05:35 Potassium 4.6 mmol/L (3.6-5.0) 08/31/21 05:35 Chloride 103.9 mmol/L (98-107) 08/31/21 05:35 Carbon Dioxide 24 mmol/L (22-30) 08/31/21 05:35 Anion Gap 17 mmol/L 08/31/21 05:35 BUN 48 mg/dL (7-17) H 08/31/21 05:35 Creatinine 0.9 mg/dL (0.6-1.2) 08/31/21 05:35 Estimated GFR 59 ml/min 08/31/21 05:35 BUN/Creatinine Ratio 53 % 08/31/21 05:35 Glucose 97 mg/dL (65-100) 08/31/21 05:35 POC Glucose 159 mg/dL (70-105) H 08/25/21 18:36 Calcium 8.7 mg/dL (8.4-10.2) 08/31/21 05:35 Last Vital Signs Temp 97.5 F L 08/31/21 19:31 Pulse 69 08/31/21 21:29 Resp 18 08/31/21 19:31 BP 107/61 08/31/21 21:29 Pulse Ox 96 08/31/21 19:31
[2021-09-01] MEDS: ESCITALOPRAM 10 MG TAB PO SCH (13:13)
[2021-09-01] MEDS: RIVAROXABAN 20 MG TAB PO SCH (13:13)
[2021-09-01] MEDS: LISINOPRIL 10 MG TAB PO SCH ×2 (13:14→21:07)
[2021-09-01] MEDS: risperiDONE 1 MG TAB PO SCH ×2 (13:14→21:07)
[2021-09-01] MEDS ORDERED: ACETAMINOPHEN 325 MG TAB PO PRN (13:49)
[2021-09-01] MEDS: MIRTAZAPINE 15 MG TAB PO SCH (21:06)
[2021-09-01] MEDS: MELATONIN 5 MG TAB PO SCH (21:06)
--- NOTE | 2021-09-02 11:06 | Progress Note ---
Subjective Date of service: 09/02/21 Principal diagnosis: Neurogenic Disorder with Bipolar Disturbance Subjective Comment: The patient was seen today. She is awake and sitting in the dayroom. She is crying. The patient is confused. She says "I don't have anybody." I reminded her that she does have a family and friends. She says "have they been here to see me?" I told her they couldn't due to covid restrictions but I would give them a call. The patient verbalizes feeling sad. But she denies SI/HI. She says "well no, I want to live. I don't want to do anything like that." I spoke with the patient's grandson, Evans Yeager and gave him updates on the patient's progress and plan. He was appreciative of the call. Mr. Yeager told me to tell the patient that everybody loves and misses her and that her sisters and friends have been calling about her. 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 Patient enrolled in individual and group therapeutic sessions and encouraged to attend. Patient provided with a safe and structured environment. Patient's physical health needs will be addressed by the Hospitalist. Hospitalist Consulted Labs including CBC, CMP, Lipid profile and Hemoglobin A1C levels ordered for baseline reference Social Assessment will be completed and the Medication Aide will work with patient and family to ensure a suitable and safe disposition Medication adjustment will be made as clinically indicated Increased Lexapro 20mg po daily Usual Wellness Episcopal/Preservation: - Start Trazodone 50 mg po QHS & 50 mg po QHS PRN between 10 PM & 2 AM for insomnia - Start Melatonin 5 mg po QHS to promote circadian rhythm The patient agreed on the treatment plan, understood the risk, benefit, alternative treatment, potential consequence of no treatment, and gave informed consent. Estimated days: 5 Post hospital care: primary care provider, psychiatric provider Case staffed with Dr. Dykes Medications and Allergies Allergies Allergy/AdvReac Type Severity Reaction Status Date / Time Sulfa (Sulfonamide Allergy Unknown Unknown Verified 08/27/21 12:21 Antibiotics) Home Medications Medication Instructions Recorded Confirmed Last Taken Type AtorvaSTATin [Lipitor] 10 mg PO QHS 08/25/21 08/25/21 Unknown History Escitalopram Oxalate [Lexapro] 5 mg PO QDAY 08/25/21 08/25/21 Unknown History LORazepam [Lorazepam] 2 mg PO HS 08/25/21 08/25/21 Unknown History Melatonin [Melatonin 5MG TAB] 5 mg PO HS 08/25/21 08/25/21 Unknown History Rivaroxaban [Xarelto] 20 mg PO QDAY 08/25/21 08/25/21 Unknown History lisinopriL [Lisinopril] 10 mg PO BID 08/25/21 08/25/21 Unknown History Active Meds: Active Medications Acetaminophen (Acetaminophen 325 Mg Tab) 650 mg PO Q6H PRN PRN Reason: Pain, Mild (1-3) Last Admin: 09/01/21 14:00 Dose: 650 mg Documented by: Atorvastatin Calcium (Atorvastatin 10 Mg Tab) 10 mg PO QHS [facility] Last Admin: 09/01/21 21:07 Dose: 10 mg Documented by: Escitalopram Oxalate (Escitalopram 10 Mg Tab) 20 mg PO QDAY [facility] Lisinopril (Lisinopril 10 Mg Tab) 10 mg PO BID [facility] Last Admin: 09/01/21 21:07 Dose: Not Given Documented by: Melatonin (Melatonin 5 Mg Tab) 5 mg PO [facility] Last Admin: 09/01/21 21:06 Dose: 5 mg Documented by: Mirtazapine (Mirtazapine 15 Mg Tab) 15 mg PO QHS [facility] Last Admin: 09/01/21 21:06 Dose: 15 mg Documented by: Risperidone (Risperidone 1 Mg Tab) 1 mg PO BID [facility] Last Admin: 09/01/21 21:07 Dose: 1 mg Documented by: Rivaroxaban (Rivaroxaban 20 Mg Tab) 20 mg PO DAILY [facility] Last Admin: 09/01/21 13:13 Dose: 20 mg Documented by: Results - Results Labs/Vitals: Laboratory Last Values WBC 8.0 K/mm3 (4.5-11.0) 08/31/21 05:35 RBC 3.63 M/mm3 (3.65-5.03) L 08/31/21 05:35 Hgb 11.4 gm/dl (10.1-14.3) 08/31/21 05:35 Hct 33.0 % (30.3-42.9) 08/31/21 05:35 MCV 91 fl (79-97) 08/31/21 05:35 MCH 31 pg (28-32) 08/31/21 05:35 MCHC 34 % (30-34) 08/31/21 05:35 RDW 13.9 % (13.2-15.2) 08/31/21 05:35 Plt Count 266 K/mm3 (140-440) 08/31/21 05:35 Sodium 140 mmol/L (137-145) 08/31/21 05:35 Potassium 4.6 mmol/L (3.6-5.0) 08/31/21 05:35 Chloride 103.9 mmol/L (98-107) 08/31/21 05:35 Carbon Dioxide 24 mmol/L (22-30) 08/31/21 05:35 Anion Gap 17 mmol/L 08/31/21 05:35 BUN 48 mg/dL (7-17) H 08/31/21 05:35 Creatinine 0.9 mg/dL (0.6-1.2) 08/31/21 05:35 Estimated GFR 59 ml/min 08/31/21 05:35 BUN/Creatinine Ratio 53 % 08/31/21 05:35 Glucose 97 mg/dL (65-100) 08/31/21 05:35 POC Glucose 159 mg/dL (70-105) H 08/25/21 18:36 Calcium 8.7 mg/dL (8.4-10.2) 08/31/21 05:35 Last Vital Signs Temp 97.7 F 09/01/21 22:10 Pulse 73 09/01/21 22:10 Resp 18 09/01/21 22:10 BP 86/46 09/01/21 22:10 Pulse Ox 97 09/01/21 22:10
--- NOTE | 2021-09-02 11:54 | Event Note ---
Date: 09/02/21 Nurse Ubi reports that the patient has been sleeping a lot during the day. Decreased Risperidone 0.5mg po BID
[2021-09-02] MEDS: ESCITALOPRAM 10 MG TAB PO SCH ×2 (12:10→12:49)
[2021-09-02] MEDS: risperiDONE 1 MG TAB PO SCH (12:11)
[2021-09-02] MEDS: LISINOPRIL 10 MG TAB PO SCH ×2 (12:13→21:16)
[2021-09-02] MEDS: RIVAROXABAN 20 MG TAB PO SCH (12:13)
[2021-09-02] MEDS: MELATONIN 5 MG TAB PO SCH (21:15)
[2021-09-02] MEDS: risperiDONE 0.25 MG TAB PO SCH (21:15)
[2021-09-02] MEDS: MIRTAZAPINE 15 MG TAB PO SCH (21:15)
[2021-09-03] MEDS: ESCITALOPRAM 10 MG TAB PO SCH (09:32)
[2021-09-03] MEDS: risperiDONE 0.25 MG TAB PO SCH ×2 (09:32→22:15)
[2021-09-03] MEDS: LISINOPRIL 10 MG TAB PO SCH ×2 (09:32→22:16)
[2021-09-03] MEDS: RIVAROXABAN 20 MG TAB PO SCH (09:32)
--- NOTE | 2021-09-03 10:15 | Progress Note ---
Subjective Date of service: 09/03/21 Principal diagnosis: Neurogenic Disorder with Bipolar Disturbance Subjective Comment: The patient was seen today. She appears to be doing better. I told her I spoke with her grandson and he says he loves and misses her, and that her friends and sister's has been asking about her. The patient says that makes her happy and she misses her family and friends a lot. She says "it feels good to know that." She denies SI/HI or hallucinations of any kind. 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 Patient enrolled in individual and group therapeutic sessions and encouraged to attend. Patient provided with a safe and structured environment. Patient's physical health needs will be addressed by the Hospitalist. Hospitalist Consulted Labs including CBC, CMP, Lipid profile and Hemoglobin A1C levels ordered for baseline reference Social Assessment will be completed and the Candy Supervisor will work with patient and family to ensure a suitable and safe disposition Medication adjustment will be made as clinically indicated Increased Lexapro 20mg po daily yesterday No changes today Usual Wellness Orthodoxy/Preservation: - Start Trazodone 50 mg po QHS & 50 mg po QHS PRN between 10 PM & 2 AM for insomnia - Start Melatonin 5 mg po QHS to promote circadian rhythm The patient agreed on the treatment plan, understood the risk, benefit, alternative treatment, potential consequence of no treatment, and gave informed consent. Estimated days: 5 Post hospital care: primary care provider, psychiatric provider Case staffed with Dr. Dykes Medications and Allergies Allergies Allergy/AdvReac Type Severity Reaction Status Date / Time Sulfa (Sulfonamide Allergy Unknown Unknown Verified 08/27/21 12:21 Antibiotics) Home Medications Medication Instructions Recorded Confirmed Last Taken Type AtorvaSTATin [Lipitor] 10 mg PO QHS 08/25/21 08/25/21 Unknown History Escitalopram Oxalate [Lexapro] 5 mg PO QDAY 08/25/21 08/25/21 Unknown History LORazepam [Lorazepam] 2 mg PO HS 08/25/21 08/25/21 Unknown History Melatonin [Melatonin 5MG TAB] 5 mg PO HS 08/25/21 08/25/21 Unknown History Rivaroxaban [Xarelto] 20 mg PO QDAY 08/25/21 08/25/21 Unknown History lisinopriL [Lisinopril] 10 mg PO BID 08/25/21 08/25/21 Unknown History Active Meds: Active Medications Acetaminophen (Acetaminophen 325 Mg Tab) 650 mg PO Q6H PRN PRN Reason: Pain, Mild (1-3) Last Admin: 09/01/21 14:00 Dose: 650 mg Documented by: Atorvastatin Calcium (Atorvastatin 10 Mg Tab) 10 mg PO QHS [facility] Last Admin: 09/02/21 21:15 Dose: 10 mg Documented by: Escitalopram Oxalate (Escitalopram 10 Mg Tab) 20 mg PO QDAY [facility] Last Admin: 09/03/21 09:32 Dose: 20 mg Documented by: Lisinopril (Lisinopril 10 Mg Tab) 10 mg PO BID [facility] Last Admin: 09/03/21 09:32 Dose: Not Given Documented by: Melatonin (Melatonin 5 Mg Tab) 5 mg PO [facility] Last Admin: 09/02/21 21:15 Dose: 5 mg Documented by: Mirtazapine (Mirtazapine 15 Mg Tab) 15 mg PO QHS [facility] Last Admin: 09/02/21 21:15 Dose: 15 mg Documented by: Risperidone (Risperidone 0.25 Mg Tab) 0.5 mg PO BID [facility] Last Admin: 09/03/21 09:32 Dose: 0.5 mg Documented by: Rivaroxaban (Rivaroxaban 20 Mg Tab) 20 mg PO DAILY [facility] Last Admin: 09/03/21 09:32 Dose: 20 mg Documented by: Results - Results Labs/Vitals: Laboratory Last Values WBC 8.0 K/mm3 (4.5-11.0) 08/31/21 05:35 RBC 3.63 M/mm3 (3.65-5.03) L 08/31/21 05:35 Hgb 11.4 gm/dl (10.1-14.3) 08/31/21 05:35 Hct 33.0 % (30.3-42.9) 08/31/21 05:35 MCV 91 fl (79-97) 08/31/21 05:35 MCH 31 pg (28-32) 08/31/21 05:35 MCHC 34 % (30-34) 08/31/21 05:35 RDW 13.9 % (13.2-15.2) 08/31/21 05:35 Plt Count 266 K/mm3 (140-440) 08/31/21 05:35 Sodium 140 mmol/L (137-145) 08/31/21 05:35 Potassium 4.6 mmol/L (3.6-5.0) 08/31/21 05:35 Chloride 103.9 mmol/L (98-107) 08/31/21 05:35 Carbon Dioxide 24 mmol/L (22-30) 08/31/21 05:35 Anion Gap 17 mmol/L 08/31/21 05:35 BUN 48 mg/dL (7-17) H 08/31/21 05:35 Creatinine 0.9 mg/dL (0.6-1.2) 08/31/21 05:35 Estimated GFR 59 ml/min 08/31/21 05:35 BUN/Creatinine Ratio 53 % 08/31/21 05:35 Glucose 97 mg/dL (65-100) 08/31/21 05:35 POC Glucose 159 mg/dL (70-105) H 08/25/21 18:36 Calcium 8.7 mg/dL (8.4-10.2) 08/31/21 05:35 Last Vital Signs Temp 98.3 F 09/03/21 08:49 Pulse 63 09/03/21 08:49 Resp 20 09/03/21 08:49 BP 100/37 09/03/21 08:49 Pulse Ox 96 09/03/21 08:49
[2021-09-03] MEDS: MELATONIN 5 MG TAB PO SCH (22:15)
[2021-09-03] MEDS: MIRTAZAPINE 15 MG TAB PO SCH (22:15)
[2021-09-04 08:22] VITALS: BP 138/68
[2021-09-04] MEDS: RIVAROXABAN 20 MG TAB PO SCH (09:25)
[2021-09-04] MEDS: ESCITALOPRAM 10 MG TAB PO SCH (09:25)
[2021-09-04] MEDS: risperiDONE 0.25 MG TAB PO SCH (09:25)
[2021-09-04] MEDS: LISINOPRIL 10 MG TAB PO SCH (09:25)
--- NOTE | 2021-09-04 09:29 | Discharge Summary ---
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 The patient's mood, cognition, behavior, moral support are improved and stabilized. St the time of discharge, the patient had no endangering behavior and no debilitating adverse effects. The patient agreed on potential consequences of no treatment and gave informed consent. Disposition: 01 HOME / SELF CARE / HOMELESS Time spent for discharge: 40 Allergies/Adverse Reactions: Allergies Sulfa (Sulfonamide Antibiotics) Allergy (Unknown, Verified 08/27/21 12:21) Unknown Vital Signs: Last Vital Signs Temp 97.5 F L 09/04/21 07:40 Pulse 60 09/04/21 07:40 Resp 16 09/04/21 07:40 BP 138/68 09/04/21 07:40 Pulse Ox 95 09/04/21 07:40 Last Lab: Laboratory Last Values WBC 8.0 K/mm3 (4.5-11.0) 08/31/21 05:35 RBC 3.63 M/mm3 (3.65-5.03) L 08/31/21 05:35 Hgb 11.4 gm/dl (10.1-14.3) 08/31/21 05:35 Hct 33.0 % (30.3-42.9) 08/31/21 05:35 MCV 91 fl (79-97) 08/31/21 05:35 MCH 31 pg (28-32) 08/31/21 05:35 MCHC 34 % (30-34) 08/31/21 05:35 RDW 13.9 % (13.2-15.2) 08/31/21 05:35 Plt Count 266 K/mm3 (140-440) 08/31/21 05:35 Sodium 140 mmol/L (137-145) 08/31/21 05:35 Potassium 4.6 mmol/L (3.6-5.0) 08/31/21 05:35 Chloride 103.9 mmol/L (98-107) 08/31/21 05:35 Carbon Dioxide 24 mmol/L (22-30) 08/31/21 05:35 Anion Gap 17 mmol/L 08/31/21 05:35 BUN 48 mg/dL (7-17) H 08/31/21 05:35 Creatinine 0.9 mg/dL (0.6-1.2) 08/31/21 05:35 Estimated GFR 59 ml/min 08/31/21 05:35 BUN/Creatinine Ratio 53 % 08/31/21 05:35 Glucose 97 mg/dL (65-100) 08/31/21 05:35 POC Glucose 159 mg/dL (70-105) H 08/25/21 18:36 Calcium 8.7 mg/dL (8.4-10.2) 08/31/21 05:35 Core Measure Documentation - Palliative Care Palliative Care/ Comfort Measures: Not Applicable - Core Measures Any of the following diagnoses?: none Exam - Constitutional Vitals: Temp Pulse Resp BP Pulse Ox 97.5 F L 60 16 138/68 95 09/04/21 07:40 09/04/21 07:40 09/04/21 07:40 09/04/21 07:40 09/04/21 07:40 General appearance: Present: no acute distress - EENT Eyes: Present: PERRL, EOM intact ENT: hearing intact, clear oral mucosa - Neck Neck: Present: supple, normal ROM - Respiratory Respiratory effort: normal Plan Activity: advance as tolerated Weight Bearing Status: Weight Bear as Tolerated Care Plan Goals: maintain good and stable mental health Plan of Treatment: The patient should be compliant with medications, not to use drugs, and not to drink alcohol. The patient understands that if suicidal ideas, homicidal ideas or any endangering feeling arise, the patient should seek assistance including, but not limited to crisis hotline, and emergency room. Assessment: Neurognic Disorder with behavior Disturbance Follow up with: PRIMARY CARE, [Primary Care Provider] - 7 Days Prescriptions: Mirtazapine [Remeron 15mg TAB] 15 mg PO QHS #30 tablet Escitalopram [Lexapro] 20 mg PO QDAY #60 tablet Melatonin [Melatonin 5MG TAB] 5 mg PO HS #30 risperiDONE [RisperDAL] 0.5 mg PO BID #120 tablet
== END 2021-09-04 19:10 | disposition home or self-care (01) | DRG 884 ==
LOC: 3A 16:56 → UNDOADMIN 16:56 → 5A 08-25 08:18
PROVIDERS: ADMIT Psychiatry & Neurology Psychiatry; ATTEND Psychiatry & Neurology Psychiatry
DX: F03.91 Unspecified dementia, unspecified severity, with behavioral disturbance (principal); E78.5 Hyperlipidemia, unspecified
CPT/HCPCS: 36415; 80048; 82962; 85027; G0378